=== PATIENT | male | born 1960 | race Caucasian/White ===

== ENCOUNTER → 2024-12-03 | Outpatient (CLI) | payer OTHER | END | disposition home or self-care (01) | LOC: LAB SHORT 09:48 → LAB 09:48 | DX: R31.9 Hematuria, unspecified (principal) | CPT/HCPCS: 87086 ==

== ENCOUNTER 2025-02-12 06:30 | Day surgery (SDC) | payer OTHER ==
[2025-02-12] VITALS (16 sets, daily range): BP systolic 108–152; BP diastolic 65–82
[~2025-02-12] VITALS: Ht 182.9 cm; Wt 87.1 kg
[2025-02-12] MEDS ORDERED: Crestor40 MG (07:22)
[2025-02-12] MEDS ORDERED: LOSA50 (07:22)
--- NOTE | 2025-02-12 07:25 | NUR ---
Ambulatory in Day SurgeryPre-Op teaching done. Pt verbalizes understanding. History, Chart, Medications and Allergies reviewed before start of procedure.Patient confirms NPO status and agrees with scheduled surgery. Patient States Post-Procedure ride home has been arranged.
--- NOTE | 2025-02-12 07:56 | NUR ---
02/12/25 0756 Adalgisa Crandall CONFIRMED AND REVIEWED H&P, MEDCICATIONS, ALLERGIES, MEDICAL HISTORY, RESPIRATORY HISTORY, VITAL SIGNS, 3-LEAD EKG, CONSENTS, AND PHYSICIAN ORDERS. PATIENT CONFIRMS NPO STATUS AND AGREES WITH SCHEDULED PROCEDURE. MONITOR INTACT WITH CONTINUOUS PULSE OXIMETRY, CAPNOGRAPHY, 3-LEAD EKG, INTERMITTENT BP. SUPPLEMENTAL O2 TO BE TITRATED THROUGHOUT PROCEDURE TO MAINTAIN O2 SATURATION ABOVE 90%. PATIENT DETERMINED TO BE ASA APPROPRIATE FOR PROPOFOL SEDATION PRIOR TO START OF PROCEDURE BY DR. TAVAREZ MALLAMPATI CLASS 2 AIRWAY: COMPLETE VISUALIZATION OF THE UVULA.
== END 2025-02-12 08:58 | disposition home or self-care (01) ==
LOC: ORSCMMR 06:30 → ORD 07:45 → ORSCMMR 08:15
PROVIDERS: Internal Medicine Gastroenterology
PROC: 0DJD8ZZ Inspection of Lower Intestinal Tract, Via Natural or Artificial Opening Endoscopic (ICD-10-PCS; principal; 2025-02-12 08:15)
DX: Z12.11 Encounter for screening for malignant neoplasm of colon (principal); I10 Essential (primary) hypertension; E78.00 Pure hypercholesterolemia, unspecified; Z79.899 Other long term (current) drug therapy; F17.210 Nicotine dependence, cigarettes, uncomplicated
CPT/HCPCS: J2704; J7120

== ENCOUNTER 2025-03-07 08:52 | Day surgery (SDC) | payer OTHER ==
[2025-03-07] VITALS (15 sets, daily range): BP systolic 121–157; BP diastolic 72–91
[~2025-03-07] VITALS: Ht 182.9 cm; Wt 88.9 kg
[~2025-03-07 08:52] MED LIST: CeFAZolin Sodium 2,000 MG in NS 100 ML IV SCH; IBUP800 PO; LORA10ER PO; LOSA50 PO; ROSUVASTATIN CA20 MG PO; VITAMIN C125 MG PO; Vitamin B Comple1 EA PO; Vitamin D1000 UNI1 PO
[2025-03-07] MEDS ORDERED: Metoclopramide HCl 5MG / ML 2ML Vial IV PRN (09:10)
[2025-03-07] MEDS ORDERED: ePHEDrine Sulfate 50 MG/ML 1ML Injection IV PRN (09:10)
[2025-03-07] MEDS ORDERED: Albuterol 2.5 MG/3 ML VIAL INH PRN (09:10)
[2025-03-07] MEDS ORDERED: FentaNYL Citrate 50 MCG/ML 2 ML Injection IV PRN ×2 (09:10→09:15)
[2025-03-07] MEDS ORDERED: Ondansetron HCl 2 MG / ML 2ML Vial IV PRN (09:15)
[2025-03-07] MEDS ORDERED: HydrALAZINE HCl 20 MG / ML 1ML Vial IV PRN (09:15)
[2025-03-07] MEDS ORDERED: HYDROmorphone HCl/Pf 1MG SYR IV PRN ×2 (09:15)
--- NOTE | 2025-03-07 09:27 | NUR ---
Ambulatory in Day Surgery, accompanied by his Tamara. History, Chart, Medications and Allergies reviewed before start of procedure. Patient confirms NPO status and agrees with scheduled surgery. Pre-Op teaching done. Pt verbalizes understanding. Patient States Post-Procedure ride home has been arranged. Pt belongings placed underneath gurney for safekeeping. Pt glasses taken to PACU for safkeeping.
[2025-03-07] MEDS ORDERED: Bupivacaine 0.5% HCl 5 MG/ML 30MLVIAL ONE (09:54)
[2025-03-07] MEDS ORDERED: FentaNYL Citrate 50 MCG/ML 2 ML Injection ONE ×2 (11:23→13:18)
[2025-03-07] MEDS ORDERED: Midazolam HCl 1MG / ML 2ML Vial ONE (11:23)
[2025-03-07] MEDS ORDERED: Sugammadex Sodium 200 MG/2ML SDV (100 MG/ML) ONE (11:24)
[2025-03-07] MEDS ORDERED: Rocuronium Bromide 10 MG/ML 5ML Injection IV ONE ×2 (11:24→12:00)
[2025-03-07] MEDS ORDERED: Dexamethasone Sod Phos 10 MG/ML 1ML VIAL ONE (11:24)
[2025-03-07] MEDS ORDERED: Ondansetron HCl 2 MG / ML 2ML Vial ONE (11:24)
[2025-03-07] MEDS ORDERED: ePHEDrine Sulfate 50 MG/ML 1ML Injection ONE (11:47)
[2025-03-07] MEDS ORDERED: OxyCODONE 5 mg/Acetamin 325 mg TABLET PO PRN (14:00)
--- NOTE | 2025-03-07 15:38 | NUR ---
ASSUMED CARE OF PATIENT. INCISIONS X4 C/D/I. TOLERATING PO, C/O MILD NAUSEA. C/O ABD PAIN 07/01. AT BEDSIDE.
--- NOTE | 2025-03-07 15:53 | NUR ---
DR. GRIMES AT BEDSIDE TALKING TO TREVIN. VERBAL ORDER FOR SCOPALIMINE PATCH FOR NAUSEA.
--- NOTE | 2025-03-07 16:18 | NUR ---
SCOPE PATCH PLACED. STATES HE IS READY TO GET DRESSED. PT BELCHED WHEN UP AND MOVING AND STATES HE WAS FEELING BETTER. Discharge instructions reviewed with patient. Patient verbalizes understanding. Copy given to patient to take home. Patient up to Ambulate independently. Gait steady.
== END 2025-03-07 16:18 | disposition home or self-care (01) ==
LOC: ORSCMMR 08:52 → ORD 10:30 → ORSCMMR 10:30
PROVIDERS: Surgery
PROC: 0YU74JZ Supplement Right Femoral Region with Synthetic Substitute, Percutaneous Endoscopic Approach (ICD-10-PCS; principal; 2025-03-07 11:30)
PROC: 8E0W4CZ Robotic Assisted Procedure of Trunk Region, Percutaneous Endoscopic Approach (ICD-10-PCS; principal; 2025-03-07 11:30)
PROC: 3E0T3BZ Introduction of Anesthetic Agent into Peripheral Nerves and Plexi, Percutaneous Approach (ICD-10-PCS; principal; 2025-03-07 11:30)
PROC: 0YU54JZ Supplement Right Inguinal Region with Synthetic Substitute, Percutaneous Endoscopic Approach (ICD-10-PCS; principal; 2025-03-07 11:30)
DX: K40.30 Unilateral inguinal hernia, with obstruction, without gangrene, not specified as recurrent (principal); K41.30 Unilateral femoral hernia, with obstruction, without gangrene, not specified as recurrent; I10 Essential (primary) hypertension; E78.5 Hyperlipidemia, unspecified; F17.210 Nicotine dependence, cigarettes, uncomplicated; G47.33 Obstructive sleep apnea (adult) (pediatric); Z79.899 Other long term (current) drug therapy
CPT/HCPCS: A9270; C1781; J0690; J1100; J2250; J2405; J2704; J2765; J3010; J7120